=== PATIENT | male | born 1990 | race Caucasian/White ===

== ENCOUNTER 2019-02-16 18:24 | Emergency (ER) | payer BC ==
[2019-02-16] MEDS ORDERED: Proparacaine 0.5% Ophth Soln 15 ML Bottle EYELF ONE (19:07)
[2019-02-16] MEDS ORDERED: Fluorescein 1 MG Ophth Strip EYELF ONE (19:08)
[2019-02-16] MEDS ORDERED: Erythromycin Base 0.5% Ophth Oint 1 GM Tube EYELF ONE (19:51)
[2019-02-16] MEDS ORDERED: Diphtheria,Pertussis(Acell),Tetanus Vaccine 0.5 ML Syringe IM ONE (19:55)
--- NOTE | 2019-02-16 19:58 | EDM.PDOC ---
ED HPI GENERAL MEDICAL PROBLEM - General Chief Complaint: Eye Problems Stated Complaint: LEFT EYE INJURY Time Seen by Provider: 02/16/19 19:20 - History of Present Illness INITIAL COMMENTS - FREE TEXT/NARRATIVE: 28-year-old male presents to the emergency room with a left eye injury. This morninp patient was walking through some heavy brush and had a stick hit him in the eye. The patient was trying to get he had friends help him so they just kept at until it was done a successfully at the NOW the patient has painful eye. He is unsure of his last tetanus shot. Patient denies any other injuries. Left Eye Pain Score (Numeric/FACES): 8 - Related Data Allergies Allergy/AdvReac Type Severity Reaction Status Date / Time amoxicillin Allergy Hives Verified 02/16/19 19:06 Home Meds: Home Meds Acetaminophen/HYDROcodone [Thornton 325-5 MG] 1 - 2 tab PO Q6H PRN #12 tablet 02/16 [Rx] ED ROS GENERAL - Review of Systems Review Of Systems: See Below Constitutional: Reports: No Symptoms HEENT: Reports: Eye Pain. Denies: Ear Pain, Rhinitis Respiratory: Reports: No Symptoms Cardiovascular: Reports: No Symptoms GI/Abdominal: Reports: No Symptoms Neurological: Reports: No Symptoms ED EXAM GENERAL W FULL EYE - Physical Exam Exam: See Below Exam Limited By: No Limitations General Appearance: Alert, No Apparent Distress Conjunctiva & Sclera: Left: Injected Cornea Exam: Left: Corneal Abrasion (Large involves the inferior lateral quarter ), Bilateral: Foreign Body (None seen) Ears: Normal External Exam, Normal Canal, Hearing Grossly Normal, Normal TMs Nose: Normal Inspection, Normal Mucosa, No Blood Throat/Mouth: Normal Inspection, Normal Lips, Normal Teeth, Normal Gums, Normal Oropharynx, Normal Voice, No Airway Compromise Head: Atraumatic, Normocephalic Course - Vital Signs Last Recorded V/S: Last Vital Signs Temp 37.3 C 02/16/19 19:13 Pulse 73 02/16/19 19:13 Resp 20 02/16/19 19:13 BP 116/83 02/16/19 19:13 Pulse Ox 99 02/16/19 19:13 - Orders/Labs/Meds Orders: Active Orders 24 hr Category Date Time Status Erythromycin Base [Erythromycin 0.5% Ophth Oint] Med 02/16/19 19:51 Once 1 gm EYELF ONETIME ONE Meds: Medications Discontinued Medications Generic Name Dose Route Start Last Admin Trade Name Freq PRN Reason Stop Dose Admin Fluorescein Sodium 1 mg 02/16/19 19:08 Ful-Nereida EYELF 02/16/19 19:09 ONETIME ONE Proparacaine HCl 2 ml 02/16/19 19:07 Proparacaine 0.5% Ophth Soln EYELF 02/16/19 19:08 ONETIME ONE - Re-Assessments/Exams Free Text/Narrative Re-Assessment/Exam: 02/16/19 20:00 Patient had good thorough examination no foreign bodies identified erythromycin ointment applied Departure - Departure Time of Disposition: 20:00 Disposition: Home, Self-Care 01 Clinical Impression: Corneal abrasion - Discharge Information Prescriptions: Acetaminophen/HYDROcodone [Thornton 325-5 MG] 1 - 2 tab PO Q6H PRN #12 tablet PRN Reason: Pain Referrals: PCP,None [Primary Care Provider] - Additional Instructions: Return to emergency room with any questions problems or worsening symptoms. Using erythromycin ointment every couple hours while awake. Use a good dose before he go to bed. Use the pain medication only as needed for pain but these can be uncomfortable. Follow-up with your eye doctor tomorrow Is a hydrocodone as needed for pain one or [address] or returning to work within 12 hours of using this medication - My Orders Last 24 Hours: My Active Orders 02/16/19 19:51 Erythromycin Base [Erythromycin 0.5% Ophth Oint] 1 gm EYELF ONETIME ONE - Assessment/Plan Last 24 Hours: My Active Orders 02/16/19 19:51 Erythromycin Base [Erythromycin 0.5% Ophth Oint] 1 gm EYELF ONETIME ONE
== END 2019-02-16 20:00 | disposition home or self-care (01) ==
LOC: JD.ED 18:24
DX: S05.02XA Injury of conjunctiva and corneal abrasion without foreign body, left eye, initial encounter (principal); Z88.1 Allergy status to other antibiotic agents; W22.8XXA Striking against or struck by other objects, initial encounter
CPT/HCPCS: 90471; 90700; 99283; A9270